=== PATIENT | male | born 1975 | race Caucasian/White ===

== ENCOUNTER → 2017-12-19 | Outpatient (REF) | payer MEDICARE, BC | LOC: M LAB REF 15:28 | DX: L08.9 Local infection of the skin and subcutaneous tissue, unspecified (principal) | CPT/HCPCS: 87070 ==

== ENCOUNTER → 2023-10-23 | Outpatient (CLI) | payer MEDICARE, BC | LOC: M PLALAB 14:12 | PROVIDERS: ATTEND Internal Medicine | DX: R51.9 Headache, unspecified (principal) ==

== ENCOUNTER → 2025-01-02 | Outpatient (REF) | payer MEDICARE, BC ==
[~2025-01-02] MED LIST: ALLE10TA62 PO; FLUO-365 PO; ROSU10TA61 PO
== END ==
LOC: M LAB REF 16:57
DX: B34.9 Viral infection, unspecified (principal)

== ENCOUNTER 2025-01-06 15:23 | Emergency (ER) | payer MEDICARE, BC ==
[~2025-01-06] VITALS: Ht 185.4 cm; Wt 108.3 kg
[2025-01-06] MEDS: NS (Normal Saline) 0.9% 1,000 ML IV ONE (16:39)
[2025-01-06] MEDS: diphenhydrAMINE 50 MG/ML VIAL IV STA (16:39)
[2025-01-06] MEDS: KETOROLAC 30 MG/ML 1 ML VIAL IV ONE (17:52)
[2025-01-06 18:15] VITALS: BP 132/70; TEMP 99; O2SAT 97
== END 2025-01-06 18:16 | disposition home or self-care (01) ==
LOC: M ED 15:23
DX: R51.9 Headache, unspecified (principal); Z79.899 Other long term (current) drug therapy
CPT/HCPCS: 70450; 87486; 87581; 87633; 87798; 96361; 96374; 96375; 99284; J1200; J1885; J2765

== ENCOUNTER 2025-01-13 07:57 | Day surgery (SDC) | payer MEDICARE, BC ==
[~2025-01-13] VITALS: Ht 185.4 cm; Wt 106.2 kg
[2025-01-13] MEDS ORDERED: LIDOCAINE 2% 100 MG/5 ML SDV (FOR ANES.) As Ordered ONE (09:28)
[2025-01-13] MEDS ORDERED: dexmedeTOMIDine (4 MCG/ML) 200 MCG/50 ML BTL As Ordered ONE (09:55)
[2025-01-13 09:58] VITALS: TEMP 97.1
[2025-01-13 10:20] VITALS: BP 140/87; O2SAT 98
== END 2025-01-13 10:30 | disposition home or self-care (01) ==
LOC: M OPP 07:57
PROVIDERS: ATTEND Surgery
DX: Z12.11 Encounter for screening for malignant neoplasm of colon (principal); R19.5 Other fecal abnormalities; Z79.899 Other long term (current) drug therapy; F17.290 Nicotine dependence, other tobacco product, uncomplicated